=== PATIENT | male | born 1965 | race Hispanic/Latino ===

== ENCOUNTER 2017-05-05 12:44 | Inpatient (IN) | payer BC ==
[2017-05-05] MEDS ORDERED: Nitroglycerin 2% Ointment Foilpak UD TOP STA (12:51)
--- NOTE | 2017-05-05 12:58 | ED PDOC ---
Arrival/HPI - General Chief Complaint: Chest Pain Time Seen by Provider: 05/05/17 12:45 Historian: Patient, Spouse - History of Present Illness Time/Duration: Other (6 days) Symptom Onset: Gradual Symptom Course: Unchanged Quality: Pressure, Tightness Severity Level: Mild Associated Symptoms (Text): 05/05/17 12:56 Patient complains of a 6 day history of intermittent chest pain which he describes as a tightness and heaviness. Worse with exertion. Better with rest. No dyspnea. No diaphoresis. No dizziness or lightheadedness. No nausea or vomiting. He did take his aspirin today. He was seen in the office today by his hose maker and had a stress test done and was directed to the emergency department. History of a myocardial infarction and 2 stents. 05/05/17 12:58 Patient is currently pain-free. Past Medical History - Infectious Disease Hx of Infectious Diseases: None - Cardiac Hx Cardiac Disorders: Yes - Pulmonary Hx Respiratory Disorders: Yes (SMOKES CIGARETTES.ON CHIANTIX) - Neurological Hx Neurological Disorder: No - HEENT Hx HEENT Disorder: No - Renal Hx Renal Disorder: No - Endocrine/Metabolic Hx Endocrine Disorders: No - Hematological/Oncological Hx Blood Transfusions: No Hx Blood Transfusion Reaction: No - Integumentary Hx Dermatological Disorder: No - Musculoskeletal/Rheumatological Hx Musculoskeletal Disorders: Yes Hx Back Pain: Yes Hx Falls: No Hx Herniated Disk: Yes (EPIDURALS) - Gastrointestinal Hx Gastrointestinal Disorders: Yes Hx Gastroesophageal Reflux: Yes - Genitourinary/Gynecological Hx Genitourinary Disorders: No - Psychiatric Hx Psychophysiologic Disorder: No (SMOKES CIGARETTES,ETOH USE,) Hx Substance Use: No - Anesthesia Hx Anesthesia Reactions: No Hx Malignant Hyperthermia: No Family/Social History - Physician Review Nursing Documentation Reviewed: Yes Family/Social History: Unknown Family HX Smoking Status: Heavy Smoker > 10 Cigarettes Daily Hx Alcohol Use: No Hx Substance Use: No Allergies/Home Meds Allergies/Adverse Reactions: Allergies No Known Allergies Allergy (Verified 05/05/15 14:44) Home Medications: Home Meds Medication Instructions Recorded Confirmed Clopidogrel [Plavix] 75 mg PO DAILY 05/05/17 05/05/17 Esomeprazole Magnesium [Nexium] 40 mg PO DAILY 05/05/17 05/05/17 Metoprolol Tartrate [Lopressor] 25 mg PO DAILY 05/05/17 05/05/17 Montelukast Sodium [Singulair] 10 mg PO DAILY 05/05/17 05/05/17 Pravastatin Sodium [Pravachol] 20 mg PO DAILY 05/05/17 05/05/17 Ropinirole HCl 1 mg PO TID 05/05/17 05/05/17 Review of Systems - Physician Review All systems were reviewed & negative as marked: Yes - Review of Systems Constitutional: Fatigue. absent: Fevers Respiratory: Normal Cardiovascular: Chest Pain. absent: Palpitations, Syncope Gastrointestinal: absent: Abdominal Pain, Nausea, Vomiting Skin: Normal Neurological: Normal Physical Exam Vital Signs Temp Pulse Pulse Resp BP BP Pulse Ox 05/05/17 12:45 77 125/83 05/05/17 12:44 97.6 F 81 20 125/83 98 Temperature: Afebrile Blood Pressure: Normal Pulse: Regular Respiratory Rate: Normal Appearance: Positive for: Well-Appearing, Non-Toxic, Comfortable Pain Distress: None Mental Status: Positive for: Alert and Oriented X 3 - Systems Exam Head: Present: Atraumatic, Normocephalic Pupils: Present: PERRL Extroacular Muscles: Present: EOMI Conjunctiva: Present: Normal Mouth: Present: Moist Mucous Membranes Pharnyx: No: ERYTHEMA, EXUDATE, TONSILS ENLARGED Neck: Present: Normal Range of Motion Respiratory/Chest: Present: Clear to Auscultation, Good Air Exchange. No: Respiratory Distress, Accessory Muscle Use, Tender to Palpation Cardiovascular: Present: Regular Rate and Rhythm, Normal S1, S2. No: Murmurs Abdomen: Present: Normal Bowel Sounds. No: Tenderness, Distention, Peritoneal Signs, Rebound, Guarding Upper Extremity: Present: Normal Inspection Lower Extremity: Present: Normal Inspection. No: Edema Neurological: Present: GCS=15, CN II-XII Intact, Speech Normal, Motor Func Grossly Intact Skin: Present: Warm, Dry, Normal Color. No: Rashes Psychiatric: Present: Alert, Oriented x 3, Normal Insight, Normal Concentration Medical Decision Making ED Course and Treatment: 05/05/17 12:58 EKG shows normal sinus rhythm rate approximately [address] or T-wave changes 05/05/2017 13:56 Chest X-ray IMPRESSION: No active disease. Dictator: Pete Porter MD 05/05/17 14:26 Dr. Mcintosh requested heparin drip and admitted to telemetry on the PMD service. Dr Uriostegui accepts to his service. - Lab Interpretations Lab Results: 05/05/17 13:00 05/05/17 13:05 Lab Results 05/05/17 14:04: Urine Color Yellow, Urine Appearance Clear, Urine pH 6.5, Ur Specific [place] 1.010, Urine Protein Negative, Urine Glucose (UA) Negative, Urine Ketones Negative, Urine Blood Negative, Urine Nitrate Negative, Urine Bilirubin Negative, Urine Urobilinogen 0.2, Ur Leukocyte Esterase Negative 05/05/17 13:05: Sodium 139, Potassium 4.5, Chloride 106, Carbon Dioxide 25, Anion Gap 13, BUN 17, Creatinine 0.8, Est GFR ( Amer) > 60, Est GFR (Non- Af Amer) > 60, Random Glucose 89, Calcium 9.5, Magnesium 2.0, Total Bilirubin 0.5, AST 27, ALT 42, Alkaline Phosphatase 94, Lactate Dehydrogenase 496, Total Creatine Kinase 307 H, CK-MB (CK-2) 8.0 H, CK-MB (CK-2) % 2.6, Troponin I 0.32 H * D, Total Protein 6.7, Albumin 4.3, Globulin 2.4, Albumin/Globulin Ratio 1.8 05/05/17 13:00: PT 10.8, INR 1.00, APTT 30.1 05/05/17 13:00: WBC 8.1 D, RBC 5.55, Hgb 17.3, Hct 49.4, MCV 89.0, MCH 31.2, MCHC 35.0, RDW 12.9, Plt Count 164, MPV 9.4, Gran % 57.3, Lymph % (Auto) 35.1 H , [place] % (Auto) 5.4, Eos % (Auto) 1.6, Baso % (Auto) 0.6, Gran # 4.64, Lymph # 2.9, [place] # 0.4, Eos # 0.1, Baso # 0.05 - RAD Interpretation Radiology Orders: 05/05/17 12:52 CHEST PORTABLE [RAD] Stat - Medication Orders Current Medication Orders: Heparin Sodium/Dextrose (Heparin 25,000 Units/250ml In D5w) 25,000 units in 250 mls @ 10.886 mls/hr IV .[id number] MANI; 12 UNITS/KG/HR PRN Reason: Protocol Discontinued Medications Heparin Sodium (Porcine) (Heparin) 6,400 units 70 units/kg (6400 units) IV ONCE ONE PRN Reason: Protocol Stop: 05/05/17 14:23 Nitroglycerin (Nitro-Bid 2% Oint) 1 ea TOP STAT STA Stop: 05/05/17 12:52 Last Admin: 05/05/17 13:15 Dose: 1 ea Disposition/Present on Arrival - Present on Arrival Any Indicators Present on Arrival: No History of DVT/PE: No History of Uncontrolled Diabetes: No Urinary Catheter: No History of Decub. Ulcer: No History Surgical Site Infection Following: None - Disposition Have Diagnosis and Disposition been Completed?: Yes Diagnosis: Non-STEMI (non-ST elevated myocardial infarction), Chest pain Disposition: HOSPITALIZED Disposition Time: 14:26 Patient Plan: Admission, Telemetry Condition: SERIOUS Discharge Instructions (ExitCare): Chest Pain (ED) Forms: [facility] (Serbian)
[2017-05-05 13:21] LABS: BASO # 0.05 K/mm3 (0.0-2.0); BASO % 0.6 % (0.0-3.0); EOS # 0.1 (0.0-0.7); EOS % 1.6 % (1.5-5.0); GRAN # 4.64 (1.4-6.5); GRAN % 57.3 % (50.0-68.0); HEMATOCRIT 49.4 % (42.0-52.0); LYMPH # 2.9 (1.2-3.4); LYMPH % 35.1 % (22.0-35.0); MEAN CORPUSCULAR HEMOGLOBIN 31.2 pg (25.0-35.0); MEAN PLATELET VOLUME 9.4 fl (7.0-11.0); MONO # 0.4 (0.1-0.6); MONO % 5.4 % (1.0-6.0); RED CELL DISTRIBUTION WIDTH 12.9 % (11.5-14.5); WHITE BLOOD COUNT 8.1 10^3/ul (4.5-11.0)
[2017-05-05 13:34] LABS: PARTIAL THROMBOPLASTIN TIME 30.1 Seconds (23.7-30.8)
[2017-05-05 13:40] LABS: ALB/GLOB RATIO 1.8 (1.1-1.8); ALKALINE PHOSPHATASE 94 U/L (38-126); ALT/SGPT 42 U/L (7-56); AST/SGOT 27 U/L (17-59); BILIRUBIN,TOTAL 0.5 mg/dL (0.2-1.3); BLOOD UREA NITROGEN 17 mg/dL (7-21); CALCIUM 9.5 mg/dL (8.4-10.5); CARBON DIOXIDE 25 mmol/L (21-33); CHLORIDE 106 mmol/L (98-107); GFR AFRICAN-AMERICAN > 60; GLUCOSE,RANDOM 89 mg/dL (70-110); POTASSIUM 4.5 mmol/L (3.6-5.0); SODIUM 139 mmol/L (132-148); TOTAL PROTEIN 6.7 g/dL (5.8-8.3)
--- NOTE | 2017-05-05 13:58 | RAD ---
HISTORY: cp COMPARISON: 05/05/2015 FINDINGS: LUNGS: No active pulmonary disease. PLEURA: No significant pleural effusion identified, no pneumothorax apparent. CARDIOVASCULAR: Normal. OSSEOUS STRUCTURES: No significant abnormalities. VISUALIZED UPPER ABDOMEN: Normal. OTHER FINDINGS: None. IMPRESSION: No active disease.
[2017-05-05 14:09] LABS: PH,URINE 6.5 (4.7-8.0); URINE APPEARANCE CLEAR (CLEAR); URINE BILIRUBIN NEGATIVE (NEGATIVE); URINE BLOOD NEGATIVE (NEGATIVE); URINE COLOR YELLOW (YELLOW); URINE GLUCOSE (UA) NEGATIVE (NEGATIVE); URINE KETONE NEGATIVE (NEGATIVE); URINE LEUKOCYTE ESTERASE NEGATIVE Leu/uL (NEGATIVE); URINE PROTEIN NEGATIVE mg/dL (<30 mg/dL); URINE UROBILINOGEN 0.2 E.U./dL (<1 E.U./dL)
[2017-05-05 14:19] LABS: TROPONIN I 0.32 ng/mL
[2017-05-05] MEDS ORDERED: Heparin 25,000units in D5W 25,000 UNITS/250 ML BAG IV SCH (14:30)
[2017-05-05 17:12] VITALS: BMI 30.1
[2017-05-05] MEDS: Pantoprazole 40 mg EC Tab PO SCH (20:57)
--- NOTE | 2017-05-05 22:05 | CARD ---
APPROVED REPORT EKG Measurement Heart [id number] <Conclusion> Normal sinus rhythm Normal ECG
--- NOTE | 2017-05-05 22:46 | CON ---
DATE: 05/05/2017 LOCATION: The patient is presently in the emergency room. REASON FOR CONSULTATION: Chest pain, coronary artery disease. HISTORY OF PRESENT ILLNESS: The patient is a 51-year-old male admitted to the hospital with a complaint that he is known to have coronary artery disease. He had LAD stent put on 04/28/2015. History of hypertension, high cholesterol. He started having chest pain from last several days off and on, discomfort in the chest occurring on exertion and relived by rest. Today, this morning he had a regular stress test which was positive with discomfort in the chest along with ST depression in V4, V5, V6. On regular stress test, the patient has claustrophobia, so he could not lie down for nuclear stress test so that is the reason regular stress test was done. So, the patient went home after stress test and he started getting chest pain, so he came to emergency room were his troponin was found to elevated. The patient denies any chest now. He says at home, he was also exerting when he went upstairs and felt some chest pain, and when he sat down, this went away. PAST MEDICAL HISTORY: History of hypertension, high cholesterol. Following a non-STEMI, the patient had PTCA and stent put in LAD on 04/28/2015, restless legs syndrome, GERD, chronic back pain. PERSONAL HISTORY: Used to smoke before and stopped smoking since he had a stent put in. Denies drinking. Denies any illicit drugs. ALLERGIES: THE PATIENT DENIES ANY ALLERGIES. MEDICATIONS AT HOME: The patient's medications at home was pravastatin 20 mg daily, aspirin 81 mg daily, metoprolol 25 mg b.i.d., Plavix 75 mg daily, omeprazole 40 mg daily, Requip 0.25 mg daily, Singulair 10 mg daily. FAMILY HISTORY: Father at age 56 of [place]. Mother at age 87, she had bypass surgery and pacemaker. REVIEW OF SYSTEMS: All the system reviewed, positive mentioned in the history otherwise negative. PHYSICAL EXAMINATION: VITAL SIGNS: Blood pressure 114/79, respiration 16, pulse 75, temperature afebrile. HEENT: Head is normocephalic. Eyes, pupils normal. Conjunctivae normal. Nose and throat normal. NECK: JVP low. Carotid equal. Thorax AP diameter normal. LUNGS: Clear. CARDIOVASCULAR: S1 and S2. ABDOMEN: Soft and nontender. No organomegaly. Bowel sound normal. EXTREMITIES: No clubbing, no cyanosis. LABORATORY DATA: WBC 8.1, hemoglobin 7.3, hematocrit 49.4, platelet 164. Sodium 139, potassium 4.5, BUN 17, creatinine 0.8, AST, ALT, normal; troponin 0.32, CPK 307. The patient total creatine kinase is 307 and CK-MB is 8.0, both are elevated. Chest x-ray, no acute disease. EKG showed regular sinus rhythm. DIAGNOSES: Coronary artery disease, non-ST elevation myocardial infraction, hypertension, hyperlipidemia, history of GERD, history of chronic back pain. PLAN: We will repeat troponin in the morning. We will put the patient on aspirin 81 mg daily, Lipitor 20 mg daily, metoprolol 25 b.i.d., Plavix 75 mg daily, Protonix 40 daily, Singulair 10 mg daily. Probably, the patient will need cardiac catheterization. We will also check lipid level and will follow with you. Alexandria Mcintosh MD
[2017-05-06] MEDS: Nitroglycerin 2% Ointment Foilpak UD TOP SCH ×3 (09:21→21:24)
--- NOTE | 2017-05-06 11:09 | CP.PCM.HP ---
<Celia Sawyer - Last Filed: 05/06/17 13:23> History of Present Illness - History of Present Illness History of Present Illness: PGY-2 H&P [address] Uriostegui 51 yo male with PMH [place] with stents, HTN, HLD, herniated disc, GERD presented with 6 day history of intermittent chest pain which he describes as a tightness and heaviness. Patient states that pain started when he was lifting boxes. The pain is worse with exertion and better with rest. Pain is located in the central on the chest, occasionally radiating to the neck. She denies dyspnea, diaphoresis, dizziness or lightheadedness, nausea or vomiting. He reports taking aspirin. Patient was seen by his ice cream man and had a stress test but was to able to complete the test due to claustrophobia. PMH: [place] with stents, HTN, HLD, herniated disc, GERD PSH: cardiac stents Social hx: smokes 1/2 ppd, occasional ETOH use, denies illicit drug use family hx: mother copd, bypass, father dies at 56 for [place] allergy: NKDA homes meds: plavix, asa, ropinirole, nexium, singulair, lopressor, pravachol Present on Admission - Present on Admission Any Indicators Present on Admission: No Review of Systems - Constitutional Constitutional: absent: Fatigue, Fever, Headache, Lethargy - EENT Eyes: absent: Change in Vision Nose/Mouth/Throat: absent: Nasal Congestion, Nasal Discharge, Sore Throat - Cardiovascular Cardiovascular: Chest Pain. absent: Diaphoresis, Dyspnea, Palpitations - Respiratory Respiratory: absent: Cough, Dyspnea, Hemoptysis - Gastrointestinal Gastrointestinal: absent: Abdominal Pain, Constipation, Diarrhea, Nausea, Vomiting - Genitourinary Genitourinary: absent: Difficulty Urinating, Dysuria, Flank Pain, Hematuria - Musculoskeletal Musculoskeletal: absent: Arthralgias, Back Pain, Numbness, Tingling - Integumentary Integumentary: absent: Pruritus, Rash, Skin Ulcer, Sores - Hematologic/Lymphatic Hematologic: absent: Easy Bleeding, Easy Bruising Past Patient History - Infectious Disease Hx of Infectious Diseases: None - Past Social History Smoking Status: Light Smoker < 10 Cigarettes Daily - CARDIAC Hx Cardiac Disorders: Yes Hx Angina: Yes Hx Cardia Arrhythmia: No Hx Circulatory Problems: Yes Hx Congestive Heart Failure: No Hx Heart Murmur: No Hx Heart Transplant: No Hx Hypercholesterolemia: Yes Hx Hypertension: No Hx Internal Defibrillator: No Hx Mitral Valve Prolapse: No Hx Pacemaker: No Hx Peripheral Edema: No Hx Peripheral Vascular Disease: No - PULMONARY Hx Respiratory Disorders: No Hx Asthma: No Hx Bronchitis: No Hx Chronic Obstructive Pulmonary Disease (COPD): No Hx Emphysema: No Hx Pneumonia: No Hx Respiratory Aspiration: No Hx Respiratory Tract Infection: No Hx Sleep Apnea: No Hx Tuberculosis: No - NEUROLOGICAL Hx Neurological Disorder: No Hx Alzheimer's Disease: No HX Cerebrovascular Accident: No Hx Dementia: No Hx Dizziness: No Hx Meningitis: No Hx Migraine: No Hx Parkinson's Disease: No Hx Seizures: No Hx Transient Ischemic Attacks (TIA): No - HEENT Hx HEENT Problems: No Hx Blind: No Hx Cataracts: No Hx Deafness: No Hx Difficulty Chewing: No Hx Epistaxis: No Hx Glaucoma: No Hx Macular Degeneration: No - RENAL Hx Chronic Kidney Disease: No Hx Dialysis: No Hx Kidney Stones: No Hx Neurogenic Bladder: No Hx Pyelonephritis: No Hx Renal (Kidney) Cancer: No Hx Renal Failure: No - ENDOCRINE/METABOLIC Hx Endocrine Disorders: No Hx Adrenal Cancer: No Hx Diabetes Insipidus: No Hx Diabetes Mellitus Type 1: No Hx Diabetes Mellitus Type 2: No Hx Hyperthyroidism: No Hx Hypothyroidism: No Hx Systemic Lupus Erythematosus: No - HEMATOLOGICAL/ONCOLOGICAL Hx Blood Disorders: No Hx AIDS: No Hx Anemia: No Hx Cancer: No Hx Chemotherapy: No Hx Cirrhosis: No Hx Hemophilia: No Hx Hepatitis A: No Hx Hepatitis B: No Hx Hepatitis C: No Hx Human Immunodeficiency Virus (HIV): No Hx Metastesis: No Hx Shingles: No Hx Sickle Cell Disease: No Hx Unexplained Bleeding: No - INTEGUMENTARY Hx Dermatological Problems: No Hx Basil Cell: No Hx Eczema: No Hx Melanoma: No Hx Psoriasis: No Hx Squamous Cell: No - MUSCULOSKELETAL/RHEUMATOLOGICAL Hx Musculoskeletal Disorders: Yes Hx Arthritis: Yes Hx Back Pain: Yes Hx Degenerative Joint Disease: No Hx Falls: No Hx Fractures: No Hx Gout: No Hx Herniated Disk: No Hx Myasthenia Gravis: No Hx Osteoarthritis: Yes Hx Osteomyelitis: No Hx Osteoporosis: No Hx Rhabdomyolysis: No Hx Spinal Stenosis: No Hx Unsteady Gait: No - GASTROINTESTINAL Hx Gastrointestinal Disorders: No Hx Colostomy: No Hx Crohn's Disease: No Hx Diverticulitis: No Hx Gall Bladder Disease: No Hx Gastroesophageal Reflux: No Hx Ileostomy: No Hx Liver Failure: No Hx Pancreatitis: No HX Swallowing Problems: No Hx Ulcer: No - GENITOURINARY/GYNECOLOGICAL Hx Genitourinary Disorders: No Hx Hematuria: No Hx Incontinence: No Hx Prostate Problems: No Hx Sexually Transmitted Disorders: No Hx Urinary Tract Infection: No - PSYCHIATRIC Hx Psychophysiologic Disorder: No Hx Anxiety: No Hx Emotional Abuse: No Hx Hallucinations: No Hx Panic Symptoms: No Hx Paranoia: No Hx Post Traumatic Stress Disorder: No Hx Psychosis: No Hx Physical Abuse: No Hx Schizophrenia: No Hx Sexual Abuse: No - SURGICAL HISTORY Hx Surgeries: No Hx Amputation: No Hx Appendectomy: No Hx Cardiac Catheterization: Yes Hx Cholecystectomy: No Hx Coronary Stent: Yes Hx Gastric Bypass Surgery: No Hx Hysterectomy: No Hx Joint Replacement: No Hx Kidney Transplant: No Hx Liver Transplant: No Hx Mastectomy: No Hx Musculoskeletal Surgery: No Hx Open Heart Surgery: No Hx Orthopedic Surgery: No Hx Splenectomy: No Hx Valve Replacement: No - ANESTHESIA Hx Anesthesia Reactions: No Hx Malignant Hyperthermia: No Meds Allergies/Adverse Reactions: Allergies Allergy/AdvReac Type Severity Reaction Status Date / Time No Known Allergies Allergy Verified 05/05/15 14:44 Physical Exam - Constitutional Appears: Well, No Acute Distress - Head Exam Head Exam: ATRAUMATIC, NORMAL INSPECTION, NORMOCEPHALIC - Eye Exam Eye Exam: EOMI, Normal appearance - ENT Exam ENT Exam: Mucous Membranes Moist - Respiratory Exam Respiratory Exam: Clear to Auscultation Bilateral, NORMAL BREATHING PATTERN. absent: Decreased Breath Sounds, Rales, Rhonchi, Wheezes, Respiratory Distress - Cardiovascular Exam Cardiovascular Exam: REGULAR RHYTHM, +S1, +S2. absent: Tachycardia, Diastolic murmur, Systolic Murmur - GI/Abdominal Exam GI & Abdominal Exam: Normal Bowel Sounds, Soft. absent: Distended, Firm, Guarding, Tenderness - Extremities Exam Extremities exam: Positive for: normal inspection. Negative for: pedal edema, tenderness - Neurological Exam Neurological exam: Alert, Oriented x3 - Skin Skin Exam: Dry, Intact, Normal Color, Warm Results - Vital Signs Recent Vital Signs: Last Vital Signs Temp 98.3 F 05/06/17 06:00 Pulse 72 05/06/17 10:00 Resp 18 05/06/17 06:00 BP 129/80 05/06/17 09:21 Pulse Ox 95 05/06/17 06:00 - Labs Result Diagrams: 05/05/17 13:00 05/05/17 13:05 Labs: Laboratory Results - last 24 hr 05/05/17 05/06/17 05/06/17 20:40 04:17 04:17 APTT 38.0 H 50.6 H Troponin I 0.23 H* D Assessment & Plan - Assessment and Plan (Free Text) Assessment: 51 yo female with PMH [place] with stents, HTN, HLD, herniated disc, GERD presented with 6 day history of intermittent chest pain. Plan: 1. chest pain - trops elevated, labs reviewed - EKG reviewed, NSR, no ST changes - cont asa, plavix, metoprolol, Lipitor - most likely will need cardiac cath - nitroglycerin topical - lipid panel ordered - cardiology following 2. HTN - controlled - cont metoprolol 3. HLD - cont Lipitor - lipid panel ordered <Vargas Uriostegui S - Last Filed: 05/06/17 22:29> Results - Vital Signs Recent Vital Signs: Last Vital Signs Temp 97.6 F 05/06/17 17:20 Pulse 68 05/06/17 19:05 Resp 18 05/06/17 19:05 BP 103/72 05/06/17 19:05 Pulse Ox 95 05/06/17 06:00 - Labs Result Diagrams: 05/06/17 20:10 05/06/17 20:10 Labs: Laboratory Results - last 24 hr 05/06/17 05/06/17 05/06/17 04:17 04:17 10:45 WBC RBC Hgb Hct MCV MCH MCHC RDW Plt Count MPV Gran % Lymph % (Auto) [place] % (Auto) Eos % (Auto) Baso % (Auto) Gran # Lymph # [place] # Eos # Baso # APTT 50.6 H 36.3 H Sodium Potassium Chloride Carbon Dioxide Anion Gap BUN Creatinine Est GFR ( Amer) Est GFR (Non-Af Amer) Random Glucose Calcium Troponin I 0.23 H* D 05/06/17 05/06/17 20:10 20:10 WBC 10.3 D RBC 5.25 Hgb 16.4 Hct 46.6 MCV 88.8 MCH 31.2 MCHC 35.2 RDW 12.9 Plt Count 158 MPV 9.3 Gran % 77.5 H Lymph % (Auto) 17.2 L [place] % (Auto) 4.6 Eos % (Auto) 0.4 L Baso % (Auto) 0.3 Gran # 7.96 H Lymph # 1.8 [place] # 0.5 Eos # 0.0 Baso # 0.03 APTT Sodium 138 Potassium 3.9 Chloride 106 Carbon Dioxide 23 Anion Gap 13 BUN 16 Creatinine 0.8 Est GFR ( Amer) > 60 Est GFR (Non-Af Amer) > 60 Random Glucose 110 Calcium 8.9 Troponin I Assessment & Plan - Assessment and Plan (Free Text) Plan: Pt seen and examined. Agree with above note of resident. Meds and labs reviewed. Brokerage Office Manager notes reviewed. Will need cath today. Probable CAD. Spoke to Dr Arteaga. Spoke to Dr Castillo. Follow trop.
--- NOTE | 2017-05-06 11:50 | PN ---
DATE: REASON FOR CONSULTATION AND FOLLOWUP: Non-ST segment myocardial infarction, coronary artery disease, status post stent. SUBJECTIVE: The patient denies any chest pain last time, but feels some chest discomfort on IV heparin. PHYSICAL EXAMINATION: VITAL SIGNS: As follows: Temperature afebrile, heart rate is 60, and blood pressure 130/80. HEENT: PERRLA intact. NECK: Supple. No carotid bruit or thyromegaly. CHEST: Clear to auscultation. HEART: S1 and S2 regular. ABDOMEN: Soft. EXTREMITIES: Clubbing and cyanosis negative. LABORATORY DATA: Blood workup as follows: WBC 8.9, hemoglobin 17.3, hematocrit 49.4, and platelet count 164. Chemistry shows sodium 130, potassium 4.5, chloride 106, carbon dioxide 25, anion gap of 13, BUN 17, creatinine 0.8, and troponin is 0.23. IMPRESSION: Unstable angina, acute coronary syndrome, non-ST segment myocardial infarction, coronary artery disease, status post percutaneous transluminal coronary angioplasty of proximal and mid left anterior descending artery, [id number] degree of circumflex, status post percutaneous coronary intervention of mid left anterior descending using 4 mm Resolute 22 mm length and proximal and mid at 3 mm diameter 15 mm Resolute done by Dr. Zapata on 05/07/2015, admitted with acute coronary syndrome, positive troponin, hypertension, and hyperlipidemia. PLAN: Her plan is to continue heparin, stop it at 10 a.m., cardiac catheterization at 3 p.m. I discussed with the patient and discussed with Dr. Uriostegui. In the interim continue aspirin. Continue Plavix. Continue atorvastatin increased to 40 mg daily because LDL is 140. We will put an inch of nitroglycerin paste and echocardiogram to assess LV function. Further recommendations depending on hospital course. We will follow with you. We will keep n.p.o. after the breakfast for catheterization at 3 p.m. We will get echo to assess LV function, if it is not done yesterday. Thank you Dr. Uriostegui for providing us the opportunity in taking care of the patient, Ronald. Alexandria Castillo MD [facility] # [id number]
[2017-05-06] MEDS ORDERED: Lidocaine 2% Inj (20ml) ONE (15:49)
[2017-05-06] MEDS ORDERED: Iohexol 350mgl/ml 50 ML ONE (15:50)
[2017-05-06] MEDS ORDERED: Nitroglycerin 50mg in D5W 50 MG/250 ML BOTTLE IV ONE (15:50)
[2017-05-06] MEDS ORDERED: Midazolam 2 MG/2 ML VIAL ONE ×2 (15:55→16:12)
[2017-05-06] MEDS ORDERED: Eptifibatide 20 mg/10mL Inj IVP ONE (16:31)
[2017-05-06] MEDS ORDERED: Morphine 2 mg/ml ISec ONE (16:42)
[2017-05-06] MEDS ORDERED: Phenylephrine 10 mg/ml Inj ONE (16:42)
[2017-05-06] MEDS ORDERED: Sodium Chloride 0.9% 1,000 ML IV SCH (17:15)
[2017-05-06] MEDS: Morphine 2 mg/ml ISec IVP PRN ×2 (17:45→22:52)
[2017-05-06 20:27] LABS: BASO # 0.03 K/mm3 (0.0-2.0); BASO % 0.3 % (0.0-3.0); EOS % 0.4 % (1.5-5.0); GRAN # 7.96 (1.4-6.5); GRAN % 77.5 % (50.0-68.0); HEMATOCRIT 46.6 % (42.0-52.0); LYMPH # 1.8 (1.2-3.4); LYMPH % 17.2 % (22.0-35.0); MEAN CELL VOLUME 88.8 fl (80.0-105.0); MEAN CORPUSCULAR HEMOGLOBIN 31.2 pg (25.0-35.0); MEAN CORPUSCULAR HGB CONC 35.2 g/dl (31.0-37.0); MEAN PLATELET VOLUME 9.3 fl (7.0-11.0); MONO # 0.5 (0.1-0.6); MONO % 4.6 % (1.0-6.0); RED CELL DISTRIBUTION WIDTH 12.9 % (11.5-14.5); WHITE BLOOD COUNT 10.3 10^3/ul (4.5-11.0)
[2017-05-06 20:30] LABS: BLOOD UREA NITROGEN 16 mg/dL (7-21); CALCIUM 8.9 mg/dL (8.4-10.5); CARBON DIOXIDE 23 mmol/L (21-33); CHLORIDE 106 mmol/L (98-107); GFR AFRICAN-AMERICAN > 60; GLUCOSE,RANDOM 110 mg/dL (70-110); POTASSIUM 3.9 mmol/L (3.6-5.0); SODIUM 138 mmol/L (132-148)
[2017-05-06] MEDS: Pantoprazole 40 mg EC Tab PO SCH (21:24)
[2017-05-06] MEDS ORDERED: Alum-Mag Hydrox-Simethicone Susp (30 mL) PO STA (23:22)
--- NOTE | 2017-05-07 01:18 | CP.PCM.PN ---
Subjective - Date & Time of Evaluation Date of Evaluation: 05/06/17 Time of Evaluation: 23:10 - Subjective Subjective: pt is c/o cp sub sternal c/p cardiac cath with stent placement in LAD.NO SOB also has hx of gerd.pt is on nitro. Objective - Vital Signs/Intake and Output Vital Signs (last 24 hours): Temp Pulse Resp BP Pulse Ox 98.5 F 60 18 125/80 95 05/06/17 23:05 05/06/17 23:05 05/06/17 23:05 05/06/17 23:05 05/06/17 06:00 Intake and Output: 05/06/17 05/07/17 18:59 06:59 Intake Total 51 Balance 51 - Medications Medications: Current Medications Acetaminophen (Tylenol 325mg Tab) 650 mg PO Q4H PRN PRN Reason: Pain, moderate (4-7) Last Admin: 05/06/17 14:00 Dose: 650 mg Aspirin (Ecotrin) 81 mg PO DAILY [facility] Last Admin: 05/06/17 09:21 Dose: 81 mg Atorvastatin Calcium (Lipitor) 40 mg PO DIN [facility] Last Admin: 05/06/17 17:38 Dose: 40 mg Clopidogrel Bisulfate (Plavix) 75 mg PO DAILY [facility] Last Admin: 05/06/17 09:21 Dose: 75 mg Isosorbide Mononitrate (Imdur Er) 30 mg PO DAILY [facility] Lisinopril (Zestril) 2.5 mg PO DAILY [facility] Metoprolol Tartrate (Lopressor) 25 mg PO BID [facility] Last Admin: 05/06/17 17:38 Dose: 25 mg Montelukast Sodium (Singulair) 10 mg PO DAILY [facility] Last Admin: 05/06/17 09:21 Dose: 10 mg Morphine Sulfate (Morphine) 2 mg IVP Q6H PRN PRN Reason: Pain, moderate (4-7) Last Admin: 05/06/17 22:52 Dose: 2 mg Nitroglycerin (Nitro-Bid 2% Oint) 1 ea TOP 0900,1500,2100 [facility] Ondansetron HCl (Zofran Inj) 4 mg IVP Q4H PRN PRN Reason: Nausea/Vomiting Last Admin: 05/06/17 19:55 Dose: 4 mg Pantoprazole Sodium (Protonix Ec Tab) 40 mg PO HS [facility] Last Admin: 05/06/17 21:24 Dose: 40 mg Ropinirole HCl (Requip) 1 mg PO TID [facility] Last Admin: 05/06/17 17:38 Dose: 1 mg - Labs Labs: 05/06/17 20:10 05/06/17 20:10 PT 10.8 Seconds (9.9-11.8) 05/05/17 13:00 INR 1.00 (0.93-1.08) 05/05/17 13:00 APTT 36.3 Seconds (23.7-30.8) H 05/06/17 10:45 - Constitutional Appears: No Acute Distress - Head Exam Head Exam: NORMOCEPHALIC - Eye Exam Eye Exam: Normal appearance Pupil Exam: PERRL - ENT Exam ENT Exam: Mucous Membranes Moist - Neck Exam Neck Exam: Normal Inspection - Respiratory Exam Respiratory Exam: Clear to Ausculation Bilateral - Cardiovascular Exam Cardiovascular Exam: RRR, +S1, +S2 - Extremities Exam Extremities Exam: Full ROM - Neurological Exam Neurological Exam: Alert, Awake, Oriented x3 - Psychiatric Exam Psychiatric exam: Anxious - Skin Skin Exam: Dry, Normal Color, Warm Assessment and Plan - Assessment and Plan (Free Text) Assessment: chest pain s/p cardiac cath today. Plan: pt was given morphine 2 mg x1 .ekg stat done maalox 30cc x1 .pt improved.
[2017-05-07] MEDS ORDERED: Alum-Mag Hydrox-Simethicone Susp (30 mL) PO STA (05:32)
[2017-05-07 06:06] VITALS: O2SAT 98
[2017-05-07 07:14] LABS: CHOLESTEROL 198 mg/dL (130-200)
[2017-05-07] MEDS: Morphine 2 mg/ml ISec IVP PRN (08:39)
[2017-05-07] MEDS ORDERED: Nitroglycerin 2% Ointment Foilpak UD TOP SCH (09:00)
[2017-05-07 12:14] VITALS: BP 123/85; RESP 19; TEMP 97.7
[2017-05-07 13:42] VITALS: PULSE 78
--- NOTE | 2017-05-07 14:25 | CP.PCM.PN ---
<Celia Sawyer - Last Filed: 05/07/17 14:25> Subjective - Date & Time of Evaluation Date of Evaluation: 05/07/17 Time of Evaluation: 09:00 - Subjective Subjective: PGY-[address] Uriostegui Patient seen and examined at bedside. Patient reports chest pain, patient states that the pain improved with morphine. He denies sob, nausea, vomiting, diarrhea. He denies any pain in extremities. Objective - Vital Signs/Intake and Output Vital Signs (last 24 hours): Temp Pulse Resp BP Pulse Ox 97.7 F 78 19 123/85 98 05/07/17 12:00 05/07/17 13:41 05/07/17 12:00 05/07/17 12:00 05/07/17 06:00 Intake and Output: 05/07/17 05/07/17 06:59 18:59 Intake Total 0 Output Total 0 Balance 0 - Medications Medications: Current Medications Acetaminophen (Tylenol 325mg Tab) 650 mg PO Q4H PRN PRN Reason: Pain, moderate (4-7) Last Admin: 05/06/17 14:00 Dose: 650 mg Aspirin (Ecotrin) 81 mg PO DAILY [facility] Last Admin: 05/07/17 07:42 Dose: 81 mg Atorvastatin Calcium (Lipitor) 40 mg PO DIN [facility] Last Admin: 05/06/17 17:38 Dose: 40 mg Clopidogrel Bisulfate (Plavix) 75 mg PO DAILY [facility] Last Admin: 05/07/17 09:02 Dose: 75 mg Isosorbide Mononitrate (Imdur Er) 30 mg PO DAILY [facility] Last Admin: 05/07/17 09:02 Dose: 30 mg Lisinopril (Zestril) 2.5 mg PO DAILY [facility] Last Admin: 05/07/17 09:02 Dose: 2.5 mg Metoprolol Tartrate (Lopressor) 25 mg PO BID [facility] Last Admin: 05/07/17 09:02 Dose: 25 mg Montelukast Sodium (Singulair) 10 mg PO DAILY [facility] Last Admin: 05/07/17 09:03 Dose: 10 mg Ondansetron HCl (Zofran Inj) 4 mg IVP Q4H PRN PRN Reason: Nausea/Vomiting Last Admin: 05/06/17 19:55 Dose: 4 mg Pantoprazole Sodium (Protonix Ec Tab) 40 mg PO HS [facility] Last Admin: 05/06/17 21:24 Dose: 40 mg Ropinirole HCl (Requip) 1 mg PO TID [facility] Last Admin: 05/07/17 13:54 Dose: 1 mg - Labs Labs: 05/06/17 20:10 05/06/17 20:10 PT 10.8 Seconds (9.9-11.8) 05/05/17 13:00 INR 1.00 (0.93-1.08) 05/05/17 13:00 APTT 36.3 Seconds (23.7-30.8) H 05/06/17 10:45 - Head Exam Head Exam: ATRAUMATIC, NORMAL INSPECTION, NORMOCEPHALIC - Eye Exam Eye Exam: EOMI, Normal appearance - ENT Exam ENT Exam: Mucous Membranes Moist - Respiratory Exam Respiratory Exam: Clear to Ausculation Bilateral, NORMAL BREATHING PATTERN. absent: Decreased Breath Sounds, Rales, Rhonchi, Wheezes, Respiratory Distress - Cardiovascular Exam Cardiovascular Exam: REGULAR RHYTHM, +S1, +S2. absent: Tachycardia, Murmur - GI/Abdominal Exam GI & Abdominal Exam: Soft, Normal Bowel Sounds. absent: Distended, Firm, Tenderness - Extremities Exam Extremities Exam: Normal Inspection. absent: Pedal Edema, Tenderness Additional comments: no hematoma or bleeding at site of catheter insertion - Neurological Exam Neurological Exam: Alert, Awake, Oriented x3 - Skin Skin Exam: Dry, Intact, Normal Color, Warm Assessment and Plan - Assessment and Plan (Free Text) Assessment: 51 yo male with Past Medical History of AR with stents, HTN, hyperlipidemia, herniated disc, GERD presented with 6 day history of intermittent chest pain. Plan: 1. chest pain, due to NSTEMI - cardiac cath yesterday, 1 stent in RCA - cont asa, plavix, metoprolol, Lipitor - started on isosorbide mononitrate - started on lisinopril - nitroglycerin topical - zofran prn - labs reviewed, lipid panel showed elevated triglycerides and LDL, patient on statin tx - echo offical read pending - cardiology following 2. HTN - controlled - cont metoprolol and lisinopril 3. hyperlipidemia - cont Lipitor - lipid panel elevated triglycerides and LDL <Vargas Uriostegui - Last Filed: 05/07/17 17:04> Objective - Vital Signs/Intake and Output Vital Signs (last 24 hours): Temp Pulse Resp BP Pulse Ox 97.7 F 78 19 123/85 98 05/07/17 12:00 05/07/17 13:41 05/07/17 12:00 05/07/17 12:00 05/07/17 06:00 Intake and Output: 05/07/17 05/07/17 06:59 18:59 Intake Total 0 Output Total 0 Balance 0 - Labs Labs: 05/06/17 20:10 05/06/17 20:10 PT 10.8 Seconds (9.9-11.8) 05/05/17 13:00 INR 1.00 (0.93-1.08) 05/05/17 13:00 APTT 36.3 Seconds (23.7-30.8) H 05/06/17 10:45 Assessment and Plan - Assessment and Plan (Free Text) Plan: Pt seen and examined. Agree with above note of biomedical equipment support specialist. Labs and meds reviewed. I reviewed the note of the [employer] sales consultant on the case. Pt will be seen by Dr Castillo, if cleared he will be D/C 'd home. He will get repeat cath with stent in about [address] Arteaga. ER if symptoms return or worsen.
--- NOTE | 2017-05-07 15:15 | CARD ---
APPROVED REPORT EXAM: Two-dimensional and M-mode echocardiogram with Doppler and color Doppler. INDICATION LV Function:SystolicDiastolic Chest Pain 2D DIMENSIONS Left Atrium (2D)3.5 (1.6-4.0cm)IVSd1.4 (0.7-1.1cm) LVDd4.4 (3.9-5.9cm)PWd1.2 (0.7-1.1cm) LVDs3.2 (2.5-4.0cm)FS (%) 27.9 % LVEF (%)54.3 (>50%) M-Mode DIMENSIONS Aortic Root2.90 (2.2-3.7cm)Aortic Cusp Exc.1.60 (1.5-2.0cm) Aortic Valve AoV Peak Nbqehysu812.0cm/Maia Peak GR.5mmHg Mitral Valve MV E Swidimqk65.0cm/sMV A Pndjixtc74.3cm/sE/A ratio0.9 TDI E/Lateral E'0.0E/Medial E'0.0 Tricuspid Valve TR Peak [id number]/sRAP [id number] Peak Gr.8mmHg [id number] LEFT VENTRICLE The left ventricle is normal size. There is mild concentric left ventricular hypertrophy. The left ventricular function is normal.EF-55% There is mild hypokinesis in the apical anterior wall. Transmitral Doppler flow pattern is Grade III-reversible restrictive diastolic dysfunction. No left ventricle thrombus noted on this study. There is no ventricular septal defect visualized. There is no left ventricular aneurysm. There is no mass noted in the left ventricle. RIGHT VENTRICLE The right ventricle is normal size. There is normal right ventricular wall thickness. The right ventricular systolic function is normal. ATRIA The left atrium size is normal. The right atrium size is normal. The interatrial septum is intact with no evidence for an atrial septal defect. AORTIC VALVE The aortic valve is thickened but opens well. The aortic valve is mildly to moderately sclerotic. There is trace aortic regurgitation. There is no aortic valvular stenosis. There is no aortic valvular vegetation. MITRAL VALVE The mitral valve is thickened but opens well. Mitral regurgitation is trace. There is no mitral valve stenosis. There is no evidence of mitral valve prolapse. TRICUSPID VALVE The tricuspid valve leaflets are thickened , but open well. There is trace tricuspid regurgitation.RVSP-18 mmof Hg There is no tricuspid valve stenosis. There is no tricuspid valve prolapse or vegetation. PULMONIC VALVE The pulmonary valve is normal in structure. There is trace to mild pulmonic valvular regurgitation. There is no pulmonic valvular stenosis. GREAT VESSELS The aortic root is normal in size. The ascending aorta is normal in size. The pulmonary artery is normal. The IVC is normal in size and collapses >50% with inspiration. PERICARDIAL EFFUSION There is no pleural effusion. There is no pericardial effusion. <Conclusion> Normal Chamber Size. EF-55% There is trace aortic regurgitation. Mitral regurgitation is trace. There is trace tricuspid regurgitation.RVSP-18 mmof Hg There is trace to mild pulmonic valvular regurgitation. The IVC is normal in size and collapses >50% with inspiration. There is no pericardial effusion. No thrombus noted.
--- NOTE | 2017-05-07 19:12 | PN ---
DATE: 05/07/2017 REASON FOR CONSULTATION AND FOLLOWUP: Non-ST segment myocardial infarction, coronary artery disease, status post stent. SUBJECTIVE: The patient denies any chest pain, feels sometime heartburn, though the patient wants morphine for the chest pain every now and then, but denies any chest at this time and says that he does not get any improvement from the last morphine and there is no change in his chest pain, though he is walking and is going in for echo. PHYSICAL EXAMINATION: GENERAL: Not in apparent distress. VITAL SIGNS: As follows: Temperature afebrile, heart rate 70, blood pressure 123/85. HEENT: PERRLA. Extraocular muscles intact. NECK: Supple. No carotid bruits or thyromegaly. CHEST: Clear to auscultation. HEART: S1 and S2 regular. ABDOMEN: Soft. EXTREMITIES: Clubbing and cyanosis negative. LABORATORY DATA: Blood work as follows; WBC 10.3, hemoglobin 16.3, hematocrit 46.6, platelet count 158. Chemistry shows sodium 130, potassium 3.9, chloride 106, carbon dioxide 23, anion gap of 13, BUN 16, creatinine 0.8. Triglycerides 220, cholesterol 198, LDL 147, and HDL 34. IMPRESSION AND PLAN: Acute coronary syndrome, unstable angina, status post percutaneous transluminal coronary angioplasty of right coronary artery with ulcerated plaque 80% stenosis, patent stent in left anterior descending done in 2014, needs percutaneous transluminal coronary angioplasty of circumflex and OM1, scheduled for 06/04/2017 at 07:30. In the interim continue aspirin. Continue Plavix. Discontinue morphine. Started Imdur, beta-clark and 5 mg Lopressor twice a day. Continue Plavix 75 mg daily, continue lisinopril 2.5 mg daily. We will get echocardiogram to assess LV function, ambulated with no chest pain. The patient will be discharged and scheduled for PTCA of circumflex and OM1 on 06/04/2017 at 07:30 provided the patient remains chest pain free. The patient will be discharged home and asked the patient if the patient has got chest pain before that, come to the emergency room, though, I do not anticipate any chest pain now. We will follow with you. Last night called and explained the patient's condition and planning Thank you Dr. Uriostegui for providing us the opportunity in taking care of the patient, Walter Cardenas.. Alexandria Castillo MD
--- NOTE | 2017-05-07 20:57 | CARD ---
APPROVED REPORT EKG Measurement Heart [id number] HI [id number] <Conclusion> Normal sinus rhythm Nonspecific ST and T wave abnormality Abnormal ECG
--- NOTE | 2017-05-07 21:07 | CARD ---
APPROVED REPORT EKG Measurement Heart [id number] OR [id number] <Conclusion> Normal sinus rhythm Normal ECG
== END 2017-05-07 16:10 | disposition home or self-care (01) | DRG 247 ==
LOC: ED 12:44 → ERH 14:24 → 2RSO 15:14
PROVIDERS: ADMIT Internal Medicine Nephrology; ATTEND Internal Medicine Nephrology
PROC: 027034Z Dilation of Coronary Artery, One Artery with Drug-eluting Intraluminal Device, Percutaneous Approach (ICD-10-PCS; principal; 2017-05-06)
PROC: 3E033PZ Introduction of Platelet Inhibitor into Peripheral Vein, Percutaneous Approach (ICD-10-PCS; 2017-05-06)
PROC: 4A023N7 Measurement of Cardiac Sampling and Pressure, Left Heart, Percutaneous Approach (ICD-10-PCS; 2017-05-06)
PROC: B2111ZZ Fluoroscopy of Multiple Coronary Arteries using Low Osmolar Contrast (ICD-10-PCS; 2017-05-06)
PROC: B2151ZZ Fluoroscopy of Left Heart using Low Osmolar Contrast (ICD-10-PCS; 2017-05-06)
DX: I21.4 Non-ST elevation (NSTEMI) myocardial infarction (principal); I10 Essential (primary) hypertension; I25.10 Atherosclerotic heart disease of native coronary artery without angina pectoris; K21.9 Gastro-esophageal reflux disease without esophagitis; F17.210 Nicotine dependence, cigarettes, uncomplicated; E78.00 Pure hypercholesterolemia, unspecified; G25.81 Restless legs syndrome; M54.9 Dorsalgia, unspecified; G89.29 Other chronic pain; F40.240 Claustrophobia; Z79.02 Long term (current) use of antithrombotics/antiplatelets; Z79.82 Long term (current) use of aspirin; Z95.5 Presence of coronary angioplasty implant and graft

== ENCOUNTER 2018-05-31 07:07 | Day surgery (SDC) | payer BC ==
[2018-05-07 11:11] VITALS: BMI 29.5
--- NOTE | 2018-05-29 02:14 | HP ---
DATE OF EXAM: 05/28/2018 REASON FOR ADMISSION: Left heart cath, possible angioplasty. Abnormal stress test. BRIEF CLINICAL HISTORY: This is a 52-year-old male with past medical history significant for coronary artery disease, status post multivessel PTCA who is complaining of chest pain. Patient underwent stress test, walked on the treadmill 11 minutes 31 seconds, but nuclear scan is positive and equivocal stress test, patient is scheduled for elective cardiac catheterization. Before the stress test, the patient had two episodes of chest pain, so the patient scheduled for cardiac catheterization. PAST MEDICAL HISTORY: Significant for coronary artery disease, hypertension, hyperlipidemia, history of PTCA times 3. First, patient had LAD on 05/07/2015, then patient presented with non-STEMI with patient had PTCA of RCA 05/01/2017 and then staged PTCA of circumflex OM1 on 06/04/2017. Recent cardiac workup as follows; patient had stress test dated 05/07/2018, patient could not lay down to the camera, so patient's nuclear stress was changed to the regular stress test and patient walked 11 minutes 31 seconds on Francisco protocol, achieved 90% predicted heart rate, but patient complained of developed chest tightness and according to pt. he has similar pain and feeling as patient had before the last angioplasty and stress component ST-depression 1 millimeter V4, V5, V6 with upsloping. Patient also had echocardiography on 05/07/2018 that showed ejection fraction 66%, and right ventricular systolic function is normal. Mitral valvular structures are normal. CURRENT MEDICATIONS: Patient is taking cyclobenzaprine, ibuprofen, Lexapro, Plavix 75 mg daily, aspirin 81 mg daily, metoprolol 25 mg daily, lisinopril 2.5 mg daily, Imdur 30 mg daily, Nexium 40 mg daily, Risperdal 1 mg p.o. three times a day, tramadol 50 mg daily, and Pravachol 40 mg daily. REVIEW OF SYSTEMS: As per HPI. PHYSICAL EXAMINATION: VITAL SIGNS: As follows; height of the patient is 5 feet 9 inches, weight of the patient is 200 pounds, body mass index 32 kg/m2. Blood pressure 110/76 and heart rate 64. HEENT: PERRLA. Extraocular muscles intact. NECK: Supple. No carotid bruit or thyromegaly. CHEST: Clear to auscultation. HEART: S1 and S2 regular. ABDOMEN: Soft. EXTREMITIES: Clubbing and cyanosis negative. IMPRESSION: A 52-year-old male with past medical history significant for obesity; hypertension; hyperlipidemia; coronary artery disease, status post percutaneous transluminal coronary angioplasty times 3, started 05/07/2015 with percutaneous transluminal coronary angioplasty of left anterior descending artery was done, then patient presented with non-ST segment elevation myocardial infarction and percutaneous transluminal coronary angioplasty of right coronary artery was done 05/01/2017 and staged percutaneous transluminal coronary angioplasty of circumflex obtuse marginal 1 on 06/04/2017. Has a recurrent chest pain, abnormal stress test, and patient is scheduled for elective cardiac catheterization, possible angioplasty. Echocardiogram shows normal left ventricular function, ejection fraction of 66%. Trace mitral regurgitation and trace tricuspid regurgitation, stress test dated 05/07/2018. RECOMMENDATIONS: We will do a cardiac catheterization after the blood work is available. Further recommendation after cardiac catheterization and we will follow with you. Thank you Dr. Arteaga for providing us the opportunity in taking care of Walter Cardenas. Alexandria Castillo MD JAIDA
[2018-05-31] MEDS ORDERED: Phenylephrine 10 mg/ml Inj ONE (07:18)
[2018-05-31] MEDS ORDERED: Lidocaine 2% Inj (20ml) ONE (07:18)
[2018-05-31] MEDS ORDERED: Verapamil 2 ML ONE (07:18)
[2018-05-31] MEDS ORDERED: Nitroglycerin 50mg in D5W 50 MG/250 ML BOTTLE IV ONE (07:19)
[2018-05-31] MEDS ORDERED: Iodixanol 320 MG/ML 200 ML BOTTLE IV ONE (07:19)
[2018-05-31] MEDS ORDERED: Iodixanol 320 MG/ML 100 ML BOTTLE IV ONE (07:19)
[2018-05-31] MEDS ORDERED: Iohexol 350mgl/ml 50 ML ONE (07:19)
[2018-05-31 07:27] LABS: BASO # 0.08 K/mm3 (0.0-2.0); BASO % 0.8 % (0.0-3.0); EOS # 0.1 (0.0-0.7); EOS % 0.9 % (1.5-5.0); GRAN # 5.24 (1.4-6.5); GRAN % 54.8 % (50.0-68.0); HEMOGLOBIN 16.1 g/dL (14.0-18.0); LYMPH # 3.6 (1.2-3.4); LYMPH % 37.1 % (22.0-35.0); MEAN CORPUSCULAR HEMOGLOBIN 31.4 pg (25.0-35.0); MEAN CORPUSCULAR HGB CONC 33.8 g/dl (31.0-37.0); MEAN PLATELET VOLUME 8.9 fl (7.0-11.0); MONO # 0.6 (0.1-0.6); MONO % 6.4 % (1.0-6.0); RBC 5.13 10^6/uL (3.5-6.1); RED CELL DISTRIBUTION WIDTH 13.1 % (11.5-14.5); WHITE BLOOD COUNT 9.6 10^3/uL (4.5-11.0)
[2018-05-31 07:36] LABS: BLOOD UREA NITROGEN 18 mg/dL (7-21); CALCIUM 8.9 mg/dL (8.4-10.5); GFR NON-AFRICAN AMERICAN > 60; HDL CHOLESTEROL 38 mg/dL (29-60)
[2018-05-31 07:37] LABS: INR 0.95; PARTIAL THROMBOPLASTIN TIME 34.4 Seconds (25.1-36.5); PROTHROMBIN TIME 10.9 SECONDS (9.4-12.5)
[2018-05-31 07:46] LABS: LDL CHOLESTEROL 131 mg/dL (0-129)
[2018-05-31 07:54] VITALS: O2SAT 95
[2018-05-31] MEDS ORDERED: Midazolam 2 MG/2 ML VIAL ONE ×2 (08:01→08:52)
[2018-05-31] MEDS ORDERED: Eptifibatide 20 mg/10mL Inj IVP ONE (08:24)
[2018-05-31] MEDS ORDERED: Sodium Chloride 0.9% 1,000 ML IV SCH (09:15)
[2018-05-31] MEDS ORDERED: IBUPROFEN 200 MG PO SCH (10:00)
[2018-05-31] MEDS ORDERED: Pantoprazole 40 mg EC Tab PO SCH (10:00)
[2018-05-31] MEDS ORDERED: Non Formulary Medication (Esomeprazole Magnesium [Nexium] 40 MG) PO SCH (10:00)
--- NOTE | 2018-05-31 10:12 | CPOSTOP ---
DATE: 05/31/2018 DICTATING PHYSICIAN: Alexandria Castillo MD. [place] HCM CONSULTANT: Dr. Faiza Hurtado, oil bay technician. TYPE OF ANESTHESIA: Moderate conscious sedation, total 3 mg of Versed given, 100 of fentanyl, periodically started 1 mg of Versed, 50 of fentanyl. PRE-PROCEDURE DIAGNOSES: Unstable angina, abnormal stress test, history of multiple stents. PROCEDURES PERFORMED: 1. Left heart catheterization. 2. Stenting of mid RCA. 3. Plain balloon angioplasty POBA of RPDA. FINDINGS: Mid RCA 80% stenosis, RPDA 80 to 90% stenosis. FINAL DIAGNOSIS: Single vessel disease. POST PROCEDURE CONDITION: Postprocedure, the patient's condition is stable. VASCULAR ACCESS SITE: Left radial. CLOSURE DEVICE: TR band. TOTAL RADIATION DOSE: 61167.2 milligray unit. TOTAL FLUORO TIME: 12.8 minutes. Alexandria Castillo MD
--- NOTE | 2018-05-31 10:35 | CARD ---
APPROVED REPORT Date of service: 05/31/2018 EKG Measurement Heart [id number] <Conclusion> Normal sinus rhythm Normal ECG
[2018-05-31 13:28] LABS: BASO # 0.02 K/mm3 (0.0-2.0); BASO % 0.2 % (0.0-3.0); EOS % 0.3 % (1.5-5.0); GRAN # 9.28 (1.4-6.5); GRAN % 82.2 % (50.0-68.0); HEMOGLOBIN 14.9 g/dL (14.0-18.0); LYMPH # 1.6 (1.2-3.4); LYMPH % 14.3 % (22.0-35.0); MEAN CELL VOLUME 92.9 fl (80.0-105.0); MEAN CORPUSCULAR HEMOGLOBIN 31.8 pg (25.0-35.0); MEAN CORPUSCULAR HGB CONC 34.3 g/dl (31.0-37.0); MEAN PLATELET VOLUME 9.2 fl (7.0-11.0); MONO # 0.3 (0.1-0.6); RBC 4.68 10^6/uL (3.5-6.1); RED CELL DISTRIBUTION WIDTH 13.1 % (11.5-14.5); WHITE BLOOD COUNT 11.3 10^3/uL (4.5-11.0)
[2018-05-31 13:37] LABS: BLOOD UREA NITROGEN 15 mg/dL (7-21); CALCIUM 8.5 mg/dL (8.4-10.5); GFR NON-AFRICAN AMERICAN > 60
[2018-05-31] MEDS ORDERED: Bacitracin 500 Units/gm Oint Foilpak UD ONE (14:23)
--- NOTE | 2018-05-31 16:05 | CARD ---
APPROVED REPORT Date of service: 05/31/2018 Procedure(s) performed: Left Heart Catheterization PTCA with Stenting of Mid RCA with MITCHEL PTCA with Balloon Angioplasty of R PDA PRU...... 161 ( pt is sensitive to Plavix) HISTORY The patient is a 52 year-old male with a history of : previous VA (> 7 days), most recent EF: 65.5%. (EF Method: Echocardiogram), peripheral vascular disease, previous diagnostic cath, tobacco history() : The patient is a current smoker , previous PCI (The PCI date was 06/04/2017), hypertension , dyslipidemia , Hx of Multiple PTCA who had a recent abnormal Stress test.. INDICATION The indication(s) include : positive stress test. CASE TECHNIQUE The patient was brought electively to the Cardiac Catheterization Laboratory in a fasting state and was prepped and draped in a sterile manner. The left wrist was infiltrated with 2% Lidocaine subcutaneous anesthesia. A 6FR GLIDESHEATH ACCESS KIT sheath was inserted into the left radial artery without difficulty. Coronary angiography was performed using coronary diagnostic catheters. The left coronary system was accessed and visualized with a Diagnostic,5F JL 4 CATH DXT 100 CM catheter. The right coronary system was accessed and visualized with a Diagnostic ,5 Fr JR 4 catheter. The left ventricle was accessed and visualized with a 5F PIGTAIL 145 CATH DXT 110 CM catheter. Left ventricular/Aortic Valve gradient assessed on pullback. Left ventriculogram was performed in MANN projection. Closure device was deployed with a Fr TR Band (Large) without any complications. The patient tolerated the procedure well and there were no complications associated with the procedure. Vessel Analysis The patient's coronary anatomy is right dominant. The left main coronary artery is a large size vessel with diffuse calcification noted throughout this vessel and without significant stenosis. There is a 10-20% stenosis in the ostial segment. The left main bifurcates to the left anterior descending and circumflex. The left anterior descending artery is a medium size vessel with diffuse calcification noted throughout this vessel and without significant stenosis. Patent Stent in Proximal LAD The first diagonal branch is a small size vessel with diffuse calcification noted throughout this vessel and without significant stenosis. The circumflex artery is a medium size vessel with diffuse calcification noted throughout this vessel and without significant stenosis. Patent stent in Mid Cx The first obtuse marginal branch is a large size vessel with diffuse calcification noted throughout this vessel and without significant stenosis. The right coronary artery is a large size vessel with diffuse calcification noted throughout this vessel and with significant stenosis. There is a 80% stenosis in the mid segment. Patent stent in proximal and Mid RCA in Between stent 80% stenosis The right posterior descending artery is a medium size vessel with diffuse calcification noted throughout this vessel and with significant stenosis. There is a 90% stenosis in the proximal to Mid segment. The right posterolateral branch is a medium size vessel with diffuse calcification noted throughout this vessel and without significant stenosis. Left Ventricle The left ventricle is Normal in size with Normal contractility. There was no cardiomyopathy. The left ventricular ejection fraction is estimated to be 55-16%. The left ventricular end diastolic pressure is 18-20 mmHg. PCI Technique Lesion Anticoagulation was achieved with Heparin and Integrellinb only two Bollouses. Percutaneous coronary intervention was performed on the right posterior descending artery. The lesion stenosis prior to intervention was 80-90% with MARIVEL 2 flow. A 6 Fr JR 4 Guide Catheter was used to engage the ostium. A Luge 182 Interventional Guidewire was used to cross the lesion. BALLOON DILATION A Balloon catheter 2.0 x 12 mm Sprinter RX was inserted and inflated up to 6atm for 30seconds. Multiple inflatation done in R PDA Final angiography reveals 20-30 % stenosis with MARIVEL 3 flow. PCI Technique Lesion 2 Percutaneous Coronary Intervention was performed on the mid right coronary artery. The lesion stenosis prior to intervention was 80% with MARIVEL 2 flow. A 6 Fr JR 4 Guide Catheter was used to engage the ostium. A Luge 182 Interventional Guidewire was used to cross the lesion. BALLOON DILATION A Balloon catheter 2.0 x 12 mm Sprinter RX was inserted and inflated up to 10.00atm for 28seconds. STENT DEPLOYMENT A drug-eluting stent STENT RESOLUTE SANTANA 3.5 X 15 was inserted and inflated up to 10.00atm for 28seconds. Final angiography reveals 0 % stenosis with MARIVEL 3 flow. Conclusion Single Vessel CAD limited to Mid RCA ( in between two stents) 80%, and R PDA 80-90%. Patent stent in LAD and Cx Preserved LV Fx. EF-55-605, EDP-18-20 mmoof Hg. Successful PTCA with MITCHEL of Mid RCA and POBA of R PDA. PRU.... 161 ( pt is sensitive to plavix and plts are adequately inhibited with Plavix) Recommendations Smoking Cessation Daily ASA with Plavix for at least one year Aggressive Medical TherapyCardiac Risk Reduction Program Weight Loss Reduction Program CC; Drs. Arteaga/ Arnaldo.
[2018-05-31 16:40] VITALS: BP 118/54; PULSE 74; RESP 18
[2018-05-31 16:41] VITALS: TEMP 97.4
== END 2018-05-31 16:50 | disposition home or self-care (01) ==
LOC: CATH 07:07 → 2RSO 09:21 → CATH 16:50
PROVIDERS: ATTEND Internal Medicine Cardiovascular Disease
DX: I25.110 Atherosclerotic heart disease of native coronary artery with unstable angina pectoris (principal); I10 Essential (primary) hypertension; I08.1 Rheumatic disorders of both mitral and tricuspid valves; I73.9 Peripheral vascular disease, unspecified; E78.5 Hyperlipidemia, unspecified; I25.2 Old myocardial infarction; F17.200 Nicotine dependence, unspecified, uncomplicated; Z98.61 Coronary angioplasty status
CPT/HCPCS: 36415; 80048; 80061; 85025; 85175; 85576; 85610; 85730; 86850; 86900; 93005; 93458; 99152; 99153; C1725; C1769 ×2; C1874; C1887 ×2; C9600; J1327; J1644 ×2; J2250; J2370; J2405; J3010; J7030; J7040; Q9966; Q9967